=== PATIENT | female | born 1980 | race Caucasian/White ===

== ENCOUNTER 2019-07-19 15:57 | Outpatient (CLI) | payer OTHER, SELFPAY ==
[2019-07-19 16:38] VITALS: BP 114/61; PULSE 72
[2019-07-19 16:45] VITALS: BP 107/62; PULSE 76
[2019-07-19 17:15] VITALS: BP 103/61; PULSE 74
[2019-07-19 17:25] LABS: Basophils Percent Auto 0.3 % (0.2-1.2); Eosinophils Absolute Auto 0.1 K/mm3 (0-0.3); Hematocrit 35.4 % (37.0-47.0); Immature Granulocyte Absolute 0.06 K/mm3 (0.00-0.031); Immature Granulocyte Percent A 0.8 % (0-0.5); Lymphocytes Absolute Auto 1.61 K/mm3 (0.9-3.2); Lymphocytes Percent Auto 20.6 % (18.3-44.2); Mean Corpuscular HGB Conc 33.9 g/dl (32-36); Mean Corpuscular Hemoglobin 32.1 pg (26-34); Mean Corpuscular Volume 94.7 fl (80-100); Mean Platelet Volume 9.5 fl (7.4-10.4); Monocytes Absolute Auto 0.6 K/mm3 (0.1-0.6); Monocytes Percent Auto 7.3 % (2.6-8.5); Neutrophils Absolute Auto 5.5 K/mm3 (1.3-6.7); Nucleated Red Blood Cells Perc 0.3 % (0.0-0.2); Platelet Count Result 246 k/mm3 (150-375); Red Blood Count 3.74 M/mm3 (4.2-5.4); Red Cell Distribution Width 13.6 % (11.5-14.5); White Blood Count 7.8 K/mm3 (4.5-10.0)
[2019-07-19 17:31] LABS: Add Urine Microscopic? YES; Amorphous Sediment Urine Moderate; Appearance Urine Cloudy (Clear); Bacteria Urine Trace /hpf; Bilirubin Urine Negative (Negative); Blood Urine Negative (Negative); Color Urine Yellow (Yellow); Glucose Urine UA Negative (Negative); Ketones Urine Negative (Negative); Leukocyte Esterase Ur Negative LEU/UL (NEGATIVE); Mucus Urine Rare /lpf; Nitrate Urine Negative (Negative); Protein Urine Negative (Negative); RBC Urine 0-2 /hpf (0-2); Specific Grav Ur 1.014 (1.001-1.035); Squamous Epithelial Cell Urine Many /hpf (Few); Urobilinogen Urine Negative mg/dL (<2.0); WBC Urine 0-3 /hpf (0-3)
[2019-07-19 17:32] LABS: Creatinine Urine 67.9 mg/dL; Total Protein Urine Random 13 mg/dL
[2019-07-19 17:33] VITALS: BP 78/40; PULSE 102
[2019-07-19 17:35] LABS: Alanine Aminotransferase 17 U/L (4-35); Albumin Level 3.9 g/dL (3.5-5.1); Alkaline Phosphatase 69 U/L (38-126); Aspartate Amino Transferase 21 U/L (14-36); Bilirubin,Total 0.2 mg/dL (0.2-1.3); Blood Urea Nitrogen 6 mg/dL (7-17); Calcium 9.1 mg/dL (8.4-10.2); Carbon Dioxide 23 mmol/L (22-30); Chloride 104 mmol/L (98-107); Estimated Glomerular Filt Rate > 60; Glucose 80 mg/dL (65-105); Potassium 3.2 mmol/L (3.4-5.0); Sodium 133 mmol/L (137-145); Uric Acid 2.5 mg/dL (2.5-7.5)
[2019-07-19 17:42] VITALS: BP 103/61; PULSE 75
--- NOTE | 2019-07-19 17:56 | PC.NURSE ---
Called Dr Wallace with lab results and BPs. Reported patient has edema in lower extremities. NST was good and reactive. Dr wallace said patient can be discharged.
== END 2019-07-19 17:59 | disposition home or self-care (01) ==
LOC: ANHOBOP 16:07 → ANHOBPP 16:10
PROVIDERS: Obstetrics & Gynecology; Visit Provider Obstetrics & Gynecology Gynecology
DX: O13.9 Gestational [pregnancy-induced] hypertension without significant proteinuria, unspecified trimester (principal)
CPT/HCPCS: 36415; 59025; 80053; 81001; 82570; 84156; 84550; 85025; 87086; 99199

== ENCOUNTER 2019-08-01 10:11 | Outpatient (CLI) | payer OTHER, SELFPAY ==
[2019-08-01 10:50] LABS: Potassium 3.7 mmol/L (3.4-5.0); Sodium 134 mmol/L (137-145)
== END 2019-08-01 10:12 | disposition home or self-care (01) ==
PROVIDERS: Visit Provider Obstetrics & Gynecology Gynecology
DX: R79.9 Abnormal finding of blood chemistry, unspecified (principal)
CPT/HCPCS: 36415; 84132; 84295

== ENCOUNTER 2019-09-03 16:11 | Outpatient (RCR) | payer OTHER, SELFPAY ==
[2019-09-03 16:45] VITALS: BP 114/55; PULSE 85
[2019-09-03 16:50] VITALS: BP 114/55; PULSE 84
== END 2019-09-03 17:00 | disposition home or self-care (01) ==
LOC: ANHOBOP 16:11
PROVIDERS: Visit Provider Obstetrics & Gynecology
DX: O26.893 Other specified pregnancy related conditions, third trimester (principal); Z3A.00 Weeks of gestation of pregnancy not specified
CPT/HCPCS: 59025

== ENCOUNTER 2019-10-20 10:53 | Outpatient (CLI) | payer OTHER, SELFPAY ==
[2019-10-20 11:51] LABS: Hematocrit 34.3 % (37.0-47.0); Hemoglobin 11.7 g/dL (12.0-15.0); Mean Corpuscular HGB Conc 34.1 g/dl (32-36); Mean Corpuscular Volume 90.7 fl (80-100); Mean Platelet Volume 9.1 fl (7.4-10.4); Platelet Count Result 274 k/mm3 (150-375); Red Blood Count 3.78 M/mm3 (4.2-5.4)
[2019-10-22 11:33] LABS: Rapid Plasma Reagin Non-Reactive (NonReactive)
== END 2019-10-20 10:54 | disposition home or self-care (01) ==
PROVIDERS: Visit Provider Obstetrics & Gynecology Gynecology
DX: Z01.818 Encounter for other preprocedural examination (principal)
CPT/HCPCS: 36415; 85027; 86592; 86850; 86900; 86901

== ENCOUNTER 2019-10-22 05:30 | Inpatient (IN) | payer OTHER, SELFPAY ==
--- NOTE | 2019-10-06 15:19 | PC.NURSE ---
VERIFIED WITH OR SCHEDULE AND PATIENT --C/S WITH TUBAL LIGATION ON 10/22/19 AT 0730 PATIENT GIVEN REQUISITION FOR LAB DRAW ON 10/20/19
--- NOTE | 2019-10-21 13:17 | WPDANESEPP ---
Anes - Eval Pre Procedure Procedure: Operation Date: 10/22/19 07:30 Proposed Procedures p Repeat Section with Bilateral Tubal Ligation With Fallopian Rings - Samantha Hernandez MD Date/Time: 10/21/19 13:17 Pre Op Diagnosis: C/Section Patient Data Age: 39 Gender: F Height: Weight: Allergies Allergy/AdvReac Type Severity Reaction Status Date / Time No Known Allergies Allergy Verified 10/06/19 14:50 Home Medications Medication Instructions Recorded Confirmed Type [id number] fumarate-FA 1 tablet PO DAILY 07/19/19 07/19/19 History [] insulin NPH isoph U-100 human 14 unit SUBCUT QAM 10/06/19 10/06/19 History [Humulin N NPH U-100 Insulin] insulin NPH isoph U-100 human 67 unit SUBCUT HS 10/06/19 10/06/19 History [Humulin N NPH U-100 Insulin] ondansetron HCl 4 mg PO Q6H 10/06/19 10/06/19 History valacyclovir [Valtrex] 500 mg PO DAILY 10/06/19 10/06/19 History Patient hx anesthesia problems: none Family hx anesthesia problems: none PMFSH Past Medical History Medical History (Updated 10/21/19 @ 13:18 by Yolande De Anda CRNA) Gestational diabetes HSV (herpes simplex virus) infection Surgical History Surgical History (Updated 10/21/19 @ 13:18 by Yolande De Anda CRNA) H/O section Family History Family History (Updated 10/06/19 @ 14:59 by Domingo Landers RN) Father Skin cancer Social History Social History Alcohol intake: never Substance use: never Substance use type: opiates Spiritual care concerns: No Exam Day of Procedure 10/21/19 13:17
[2019-10-22] VITALS (70 sets, daily range): BP systolic 52–124; BP diastolic 23–79; PULSE 70–194; RESP 11–20; TEMP 35.7–37.3; O2SAT 91–100; BMI 35.9
[2019-10-22 06:04] LABS: Glucose Point of Care 80 (65-105)
[2019-10-22] MEDS: LACTATED RINGERS 1,000 ML 125 ML IV CONT ×2 (06:26→07:23)
--- NOTE | 2019-10-22 06:54 | WPDANESEPPF ---
Anes - Initial Pre Proc Eval Procedure: Operation Date: 10/22/19 07:30 Proposed Procedures p Repeat Section with Bilateral Tubal Ligation With Fallopian Rings - Samantha Hernandez MD Date/Time: 10/22/19 06:54 Surgeon: Samantha Hernandez MD Pre Op Diagnosis: Repeat C/S Patient Data Age: 39 Gender: F Height: Weight: Last Vital Signs Pulse 86 10/22/19 05:58 BP 124/62 10/22/19 05:58 Pulse Ox 100 10/22/19 05:58 Allergies Allergy/AdvReac Type Severity Reaction Status Date / Time No Known Allergies Allergy Verified 10/06/19 14:50 Home Medications Medication Instructions Recorded Confirmed Type [id number] fumarate-FA 1 tablet PO DAILY 07/19/19 07/19/19 History [] insulin NPH isoph U-100 human 14 unit SUBCUT QAM 10/06/19 10/06/19 History [Humulin N NPH U-100 Insulin] insulin NPH isoph U-100 human 67 unit SUBCUT HS 10/06/19 10/06/19 History [Humulin N NPH U-100 Insulin] ondansetron HCl 4 mg PO Q6H 10/06/19 10/06/19 History valacyclovir [Valtrex] 500 mg PO DAILY 10/06/19 10/06/19 History Laboratory Tests 10/22/19 06:00 POC Capillary Glucose 80 mg/dl mg/dl (65-105) Patient hx anesthesia problems: none Family hx anesthesia problems: none PMFSH Past Medical History Medical History Gestational diabetes HSV (herpes simplex virus) infection Surgical History Surgical History H/O section Family History Family History Father Skin cancer Social History Social History Alcohol intake: never Substance use: never Substance use type: opiates Spiritual care concerns: No Anes - Eval Final PreProcedure Day of Procedure 10/22/19 06:54 Patient weight: obese Heart: regular rate and rhythm Lungs: clear to auscultation Airway: Mallampati scale class II Neurological: alert and oriented Last oral intake: >/= 8 hours ASA classification: III Emergent: no Anesthetic plan: proceed Anesthesia type and monitoring: regional spinal and standard monitoring Informed Consent: The patient's anesthetic plan and its attendant risks and benefits were discussed with the patient/family/POA. Questions were solicited and answers provided to the satisfaction of the patient/family/POA.
[2019-10-22] MEDS: ceFAZolin 2 GM/D5W 50 ML 2 GM/50 ML BAG IVPB (07:24)
--- NOTE | 2019-10-22 07:26 | PM.IMHP ---
H&P: HPI History of Present Illness Date/Time: 10/22/19 07:26 Chief complaint: Repeat C/S Narrative: Emelyn Aranda is a 39 year old female at 39 wks here for repeat csection and BTL. Patient complicated by GDMA2. Due to AMA, patient had level 2 u/s that was normal. She declined genetic testing. laps B+; Rubella nonimmune; RPR -; HBSAg -; HIV -; GBS -. [facility] Past Medical History Medical History (Updated 10/22/19 @ 07:30 by Samantha Hernandez MD) Gestational diabetes HSV (herpes simplex virus) infection (normal spontaneous vaginal delivery) Surgical History Surgical History (Updated 10/22/19 @ 07:30 by Samantha Hernandez MD) H/O section Family History Family History Father Skin cancer Social History Social History (Updated 10/22/19 @ 07:29 by Samantha Hernandez MD) Smoking status: Current every day smoker Tobacco type: cigarettes Second hand tobacco smoke exposure: Yes Alcohol intake: never Substance use: former Substance use type: heroin, 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 Spiritual care concerns: No Meds Home Medications and Allergies Home Medications Medication Instructions Recorded Confirmed Type [id number] fumarate-FA 1 tablet PO DAILY 07/19/19 10/22/19 History [] insulin NPH isoph U-100 human 14 unit SUBCUT QAM 10/06/19 10/06/19 History [Humulin N NPH U-100 Insulin] insulin NPH isoph U-100 human 67 unit SUBCUT HS 10/06/19 10/06/19 History [Humulin N NPH U-100 Insulin] ondansetron HCl 4 mg PO Q6H 10/06/19 10/06/19 History valacyclovir [Valtrex] 500 mg PO DAILY 10/06/19 10/06/19 History Allergies Allergy/AdvReac Type Severity Reaction Status Date / Time No Known Allergies Allergy Verified 10/06/19 14:50 Vital Signs Vital Signs - 24 hr 10/22/19 05:58 Pulse Rate 86 Blood Pressure 124/62 Pulse Oximetry 100 Exam Const: General: healthy appearing and alert Orientation/consciousness: patient oriented x3 Resp: Effort & Inspection: normal respiratory effort Auscultation: clear to auscultation bilaterally Cardio: Rate: regular rate Rhythm: regular rhythm GI: GI Palp: Yes Soft to palpation, No Tenderness to palpation present (GI) and No Palpable mass present Other: gravid with FH 42 cm : External Female Exam: normal external appearance Speculum Exam - Vagina: normal appearance of the vagina and normal vaginal discharge Speculum Exam - Cervix: normal appearance of the cervix Bimanual exam- vagina & uterus: uterine size normal and consistency normal Bimanual Exam- Adnexa, other: normal adnexae and No adnexal tenderness Neuro: General: patient oriented x3 Assessment and Plan Assessment and plan (1) H/O section: Code(s): Z98.891 - History of uterine scar from previous surgery Status: Acute Assessment and Plan: Plan to proceed with repeat csection as patient declined trial of labor (2) 39 weeks gestation of : Code(s): Z3A.39 - 39 weeks gestation of Status: Acute (3) Encounter for sterilization: Code(s): Z30.2 - Encounter for sterilization Status: Acute Assessment and Plan: Plan to proceed with BTL. Risks of failure with increased ectopic if fails was reviewed. Patient is aware this is a permanent, sterilizing procedure
[2019-10-22] MEDS: FAMOTIDINE 20 MG/2 ML VIAL IV PUSH (08:38)
[2019-10-22] MEDS: DEXAMETHASONE SOD PHOS INJ 4 MG/ML VIAL IV PUSH (08:38)
--- NOTE | 2019-10-22 09:06 | PM.PROC ---
Procedure Note - Detailed Date of procedure: 10/22/19 Pre-op diagnosis: Repeat C/S requests sterilization Post-op diagnosis: same Description of procedure: The patient is taken to the operating room, placed under spinal anesthesia, and prepped and draped in the usual sterile fashion. Once anesthesia is deemed adequate a Pfannenstiel skin incision is made with a scalpel and carried down to the fascia. Fascia is nicked in the midline and extended laterally using Cohen scissors. The peritoneum was entered during this process. The rectus muscles are off the fascia using sharp and blunt dissection while tenting. The Ambrosio-O retractor placed and the lower uterine segment is incised in a transverse fashion with the scalpel. The amniotic cavity is entered and clear fluid is noted. The incision is extended with blunt traction. The infant's head is assisted with the planning assistant applying fundal pressure and the infant was slowly delivered the cord is clamped and cut and the infant handed to the waiting nurse. The placenta was removed using manual traction and manual removal due to cord avulsion . The uterus was cleared of all clots and debris. The uterine incision is closed using 0 Monocryl in a running locked fashion with a 2nd layer to imbricate. Good hemostasis is noted. The right tube is grasped with a Rosa crossclamped and excised leaving approximately 2cm at the cornua the pedicle was tied off using 0 Vicryl. The identical procedure was performed on the left side. Good hemostasis was noted at both pedicles and the uterine incision. The cul-de-sac and gutters are irrigated. The Ambrosio retractor was removed. The fascia was closed using 0 Vicryl in a running fashion. Subcutaneous tissues are irrigated and made hemostatic using Bovie cautery. Skin incision is closed using 4 0 Vicryl in a subcuticular fashion. Dermaflex was placed over the incision. Sponge instrument needle counts are correct per the OR staff Anesthesia: spinal Surgeon: Samantha Hernandez MD Estimated blood loss (mL): 690 Drains: Yes (armendariz) Packing: No Pathology: yes (tubes) Complications: No immediate complications Condition: stable Disposition: PACU Findings: normal appearing tubes, ovaries, and uterus; Female with 8/9 Apgars weighing 7#9oz
[2019-10-22] MEDS: KETOROLAC 30 MG/ML VIAL (*BKC) IV PUSH (09:16)
[2019-10-22] MEDS: OXYTOCIN 30 UNITS/NS 500 ML 30 UNITS/500 ML BAG 125 UNITS IV CONT (10:20)
--- NOTE | 2019-10-22 10:20 | SUR.PHASEI ---
1020 PT sitting up and complains of dizziness. pt appears pale and clammy. lay her back on spine position, abdomen distended. fundus is firm and moderate amount of rubra noted. no clots expressed with fundal massage. IV fluid rate increased. called for help asked to call Dr. Hernandez for evaluation. 1030 Dr. Lozoya at bedside. called Dr. Hernandez was called and she was in OR case. attempting call Dr. Wallace. 1034 second IV access obtained. LR infusing wide open. pt remains conscious. 1040 attempting for lab draw. 1055 Dr. Wallace at bedside. report given for distended abdomen with decreased blood pressure. Dr. Wallace explained pt and possible internal bleeding and need exploratory laparotomy. pt agreed for plan of care. 1105 transferred pt to OR room 6. consent was signed.
--- NOTE | 2019-10-22 11:05 | SUR.PHASEI ---
1105 Transferred pt to OR via stretcher for exploratory laparotomy.
[2019-10-22 11:06] LABS: Basophils Absolute Auto 0.1 K/mm3 (0.0-0.1); Basophils Percent Auto 0.4 % (0.2-1.2); Eosinophils Percent Auto 0.2 % (0-4.4); Hemoglobin 9.3 g/dL (12.0-15.0); Immature Granulocyte Absolute 0.16 K/mm3 (0.00-0.031); Immature Granulocyte Percent A 0.9 % (0-0.5); Lymphocytes Absolute Auto 1.43 K/mm3 (0.9-3.2); Lymphocytes Percent Auto 8.4 % (18.3-44.2); Mean Corpuscular HGB Conc 33.2 g/dl (32-36); Mean Corpuscular Hemoglobin 31.3 pg (26-34); Mean Corpuscular Volume 94.3 fl (80-100); Mean Platelet Volume 9.4 fl (7.4-10.4); Monocytes Absolute Auto 0.5 K/mm3 (0.1-0.6); Monocytes Percent Auto 2.6 % (2.6-8.5); Neutrophils Absolute Auto 14.9 K/mm3 (1.3-6.7); Neutrophils Percent Auto 87.5 % (45.5-73.1); Platelet Count Result 280 k/mm3 (150-375); Red Blood Count 2.97 M/mm3 (4.2-5.4); Red Cell Distribution Width 13.3 % (11.5-14.5); White Blood Count 17.1 K/mm3 (4.5-10.0)
[2019-10-22 11:17] LABS: Partial Thromboplastin Time 23.9 SECONDS (22.3-36.8)
[2019-10-22 11:20] LABS: D Dimer 2.63 ug/mL (<0.48)
[2019-10-22] MEDS: ceFAZolin SODIUM 1 GM VIAL 2 GM IV PUSH (11:21)
[2019-10-22] MEDS: METHYLERGONOVINE MALEATE 0.2 MG/ML VIAL IM (11:33)
[2019-10-22 11:39] LABS: Fibrinogen 309 mg/dl (215-510)
--- NOTE | 2019-10-22 11:55 | PM.OBDSVD ---
DS: Admitting Diagnosis Admitting Diagnosis Admitting Diagnosis: Repeat C/S and BTL GDMA2 DS: Discharge Diagnosis Discharge Diagnosis (1) Post-op bleeding: Status: Acute Assessment and Plan: Return to OR by Dr. Wallace. Tubal sites bleeding and 1.5 liters blood in abdomen 3 units PRBC post op (2) delivery delivered: Code(s): O82 - Encounter for delivery without indication Status: Acute (3) Encounter for sterilization: Code(s): Z30.2 - Encounter for sterilization Status: Acute Assessment and Plan: s/p BTL OB - DS: Summary OB Procedures : NST and Ultrasound OB Procedures Intrapartum: low cervical, transverse and Tubal ligation OB Procedures: : Other (exploratory laparotomy with control of bleeding per Dr. Wallace) Peripartum Data Infant Delivery Method: Section Procedures: Procedures Operation Date: 10/22/19 07:30 Actual Procedures Side Surgeon p Repeat Section with Bilateral Tubal Ligation With Fallopian Rings Bilateral Samantha Hernandez MD Operation Date: 10/22/19 11:00 Actual Procedures Side Surgeon p EXPLORATORY LAPAROTOMY Not Applicable Nikhil Wallace MD complications: other (hemorrhage) Status at Discharge Functional status at discharge: independent ambulation Overall status at discharge: patient is not back to baseline Time Spent with Patient Time attestation: Total time spent providing and/or coordinating discharge services: DS: Data Data Completed and Pending Pending studies at discharge: Pending at discharge 10/22/19 08:57 Surgical [PTH] Routine Labs on day of discharge: Labs from last 24 hours 10/22/19 10/22/19 10/22/19 10:55 10:55 06:00 WBC 17.1 H RBC 2.97 L Hgb 9.3 L Hct 28.0 L MCV 94.3 MCH 31.3 MCHC 33.2 RDW 13.3 Plt Count 280 MPV 9.4 Immature Gran % (Auto) 0.9 H Neut % (Auto) 87.5 H Lymph % (Auto) 8.[address] [place] % (Auto) 2.6 Eos % (Auto) 0.2 Baso % (Auto) 0.4 Lymph # (Auto) 1.43 [place] # (Auto) 0.5 Eos # (Auto) 0.0 Baso # (Auto) 0.1 Abs Immat Gran (auto) 0.16 H Absolute Neuts (auto) 14.9 H Absolute Nucleated RBC 0.0 Nucleated RBC % 0.0 PT 13.0 INR 1.0 APTT 23.9 Fibrinogen 309 D-Dimer 2.63 H POC Capillary Glucose 80 Crossmatch 10/20/19 11:26 WBC RBC Hgb Hct MCV MCH MCHC RDW Plt Count MPV Immature Gran % (Auto) Neut % (Auto) Lymph % (Auto) [place] % (Auto) Eos % (Auto) Baso % (Auto) Lymph # (Auto) [place] # (Auto) Eos # (Auto) Baso # (Auto) Abs Immat Gran (auto) Absolute Neuts (auto) Absolute Nucleated RBC Nucleated RBC % PT INR APTT Fibrinogen D-Dimer POC Capillary Glucose Crossmatch See Detail Discharge Plan Discharge Attending physician on discharge: Samantha Hernandez Consulting providers: Nikhil Wallace Discharging Clinician: Samantha Hernandez Anticipated Discharge Date/Time: 10/25/19 11:59 Patient Disposition: Home, Self-Care Activity: may shower, may drive after 2 weeks and pelvic rest Diet: regular Wound Care Instructions: incision open to air Discharge Instructions: Education: Mom and Baby Guide Given to: Mother Follow-Up: Call your delivering provider's office for an appointment to be seen. Mom and baby should come to the [facility] for the follow-up appointment. Appointment Date/Time: October 26, 2019 at 10:00 am What to expect at your follow-up visit: Physical Assessment Call [phone] if you are unable to keep your appointment time. BREAST CARE: * Wear a snug supportive bra. * For engorgement discomfort: Bottle Feeding: * May apply ice packs ABDOMINAL INCISION: * Allow incision to air dry * Do NOT use lotions for powders on your incision * When showering, allow soap and water to run over the incision, but do not wa
--- NOTE | 2019-10-22 12:04 | PM.OP ---
Procedure Note - Brief Procedure Note - Brief Date of procedure: 10/22/19 Pre-op diagnosis: hemoperitoneum Post-op diagnosis: same Procedure performed: diagnostic exploratory laparotomy Anesthesia: GETA Surgeon: Nikhil Wallace MD Estimated blood loss (mL): 2,500 Drains: No Packing: No Pathology: none sent Complications: None Disposition: PACU Findings: large hemoperitoneum with bilateral bleeding at tubal ligation sites.
[2019-10-22] MEDS: LACTATED RINGERS 1,000 ML 30 ML IV CONT ×3 (12:11→13:23)
--- NOTE | 2019-10-22 12:56 | SUR.PHASEI ---
1222 - [place] OB RN at bedside assessing patient. performing fundal massage 1230 - Dr. Lozoya at bedside
[2019-10-22 13:00] LABS: Hematocrit 22.9 % (37.0-47.0); Hemoglobin 7.6 g/dL (12.0-15.0)
--- NOTE | 2019-10-22 13:06 | SUR.PHASEI ---
1306 - DR. MOJICA AWARE OF H&H. . NO ORDERS RECEIVED. DR MOJICA STATED THAT HE WOULD TELL DR. ROY
--- NOTE | 2019-10-22 13:07 | SUR.PHASEI ---
1305 - SOLANGE OBAMPARO AT BEDSIDE ASSESSING PT.
--- NOTE | 2019-10-22 13:15 | SUR.PHASEI ---
1315 - DR. MOJICA AT BEDSIDE. STATED THAT DR. ROY DID NOT WANT TO ADMINISTER BLOOD AT THIS TIME.
--- NOTE | 2019-10-22 14:08 | PM.PROC ---
Procedure Note - Detailed Date of procedure: 10/22/19 Pre-op diagnosis: hemoperitoneum Post-op diagnosis: same Procedure performed: diagnostic laparoscopy with evacuation of hemoperitoneum Description of procedure: Called to bedside secondary to hemodynamically unstable. Patient was taken to operating with IV running prepared and draped in a normal sterile fashion placed in supine position. A Pfannenstiel incision from prior surgery was opened with scalpel and the fascia was opened and a large amount of blood was noted in the abdomen the blood was cleared and irrigated from the abdomen. The uterus was exteriorized and noted bilateral bleeding from the tubal ligation sites. the area was clamped with Herrera clamps and suture ligated with 0 Vicryl suture bilaterally ligating the uterine tubal arteries. The uterus was noted to be boggy and the patient received Methergine x1 and IV Pitocin. The uterus began to firm and was returned to the abdomen the gutters were irrigated cleared of all clots and debris. The uterine incision was noted to be hemostatic. The muscles were examined for hemostasis the fascia was closed with 0 Vicryl suture. The subcutaneous tissue was irrigated and and closed with plain gut. The skin was closed with 4 Vicryl suture. The patient did receive an additional 2 g of Ancef after skin was closed. Sponge lap and needle counts were correct x2 patient was taken to recovery room. Anesthesia: GETA Surgeon: Nikhil Wallace MD Estimated blood loss (mL): 2,500 Drains: Yes Packing: No Pathology: none sent Condition: stable Disposition: PACU
[2019-10-22] MEDS: DEXTROSE 5%/0.45% SOD CHL 1,000 ML 125 ML IV CONT (14:30)
[2019-10-22] MEDS: ONDANSETRON INJ 4 MG/2 ML VIAL IV PUSH (20:46)
[2019-10-22] MEDS: KCL 20 MEQ/D5/0.45% SOD CHL 1,000 ML 125 ML IV CONT (22:30)
[2019-10-23] VITALS (25 sets, daily range): BP systolic 101–125; BP diastolic 53–72; PULSE 98–119; RESP 16–20; TEMP 36.7–38.2; O2SAT 90–100
[2019-10-23] MEDS: ONDANSETRON INJ 4 MG/2 ML VIAL IV PUSH ×4 (02:02→17:12)
[2019-10-23 05:37] LABS: Basophils Percent Auto 0.1 % (0.2-1.2); Eosinophils Percent Auto 0.1 % (0-4.4); Immature Granulocyte Absolute 0.19 K/mm3 (0.00-0.031); Immature Granulocyte Percent A 1.2 % (0-0.5); Lymphocytes Absolute Auto 1.54 K/mm3 (0.9-3.2); Mean Corpuscular HGB Conc 32.9 g/dl (32-36); Mean Corpuscular Hemoglobin 30.4 pg (26-34); Mean Corpuscular Volume 92.3 fl (80-100); Mean Platelet Volume 9.2 fl (7.4-10.4); Monocytes Absolute Auto 0.8 K/mm3 (0.1-0.6); Monocytes Percent Auto 5.3 % (2.6-8.5); Neutrophils Absolute Auto 12.8 K/mm3 (1.3-6.7); Neutrophils Percent Auto 83.3 % (45.5-73.1); Platelet Count Result 238 k/mm3 (150-375); Red Blood Count 1.68 M/mm3 (4.2-5.4); Red Cell Distribution Width 13.3 % (11.5-14.5); White Blood Count 15.3 K/mm3 (4.5-10.0)
[2019-10-23 05:43] LABS: Hematocrit 15.5 % (37.0-47.0); Hemoglobin 5.1 g/dL (12.0-15.0)
--- NOTE | 2019-10-23 06:00 | PC.NURSE ---
Dr Hernandez was notified of critical H/H of 5.1 at 0600 on 10/23/19. No new orders at this time...Stated I will see patient this morning before office hours to speak to patient about possible blood transfusion.
--- NOTE | 2019-10-23 06:40 | PC.NURSE ---
Total fentanyl intake from STORE RECEIVER pump from 1942 on 10/21 till 614 on 10/22: 138 mcg.. Patient is drowsy by easily awakened.
[2019-10-23] MEDS: DEXTROSE 5%/0.45% SOD CHL 1,000 ML 125 ML IV CONT (06:48)
--- NOTE | 2019-10-23 08:01 | P.PNAN_ITS ---
Anes-Prog Note L&D Date/Time: 10/23/19 08:01 Comfortable throughout: section Neuraxial method: spinal Epidural/Spinal procedure site: clean & non-tender Neuro status: Neuro function grossly intact. Cardiovascular status: other (Following , patient underwent exploratory laparotomy by Dr. Hernandez. Hb 5.1 this A.M. Per pt. RN, patient to be transfused 3 units PRBCs this A.M.) Respiratory status: normal Airway patency: baseline Mental status: baseline Post-Op hydration status: normal Vital Signs: Last Vital Signs Temp 37.0 C 10/23/19 04:15 Pulse 108 H 10/23/19 04:15 Resp 16 10/23/19 06:00 BP 116/65 10/23/19 04:15 Pulse Ox 90 10/23/19 04:15 I/O: Intake & Output 10/22/19 10/23/19 10/23/19 23:59 07:59 15:59 Intake Total 2390 700 Output Total 200 1500 Balance 2190 -800 Post-procedural complaints: nausea, vomiting and other (incisional pain. Patient being transitioned from APPLIED MATHEMATICIAN to PO pain medications per patient RN) Patient feedback: Patient satisfied with anesthetic care.
--- NOTE | 2019-10-23 08:06 | WPDANLDNPN2 ---
Anes-Prog Note L&D-Neuraxial Date/Time: 10/23/19 08:06 Neuraxial medications: intrathecal PF morphine Opiod-related complaints: vomiting Patient feedback: Patient satisfied with post-operative pain management. Comments: pt. to be transitioned from REGISTRAR ASSISTANT to PO pain medications per pt. RN.
--- NOTE | 2019-10-23 08:07 | P.PNAN_ITS ---
Anes - Prog Note Post-Op Date/Time: 10/23/19 08:07 Cardiovascular status: other (Following , patient underwent exploratory laparotomy by Dr. Hernandez. Hb 5.1 this A.M. Per pt. RN, patient to be transfused 3 units PRBCs this A.M.) Respiratory status: normal Airway patency: baseline Mental status: baseline Post-Op hydration status: normal Vital Signs: Last Vital Signs Temp 37.0 C 10/23/19 04:15 Pulse 108 H 10/23/19 04:15 Resp 16 10/23/19 06:00 BP 116/65 10/23/19 04:15 Pulse Ox 90 10/23/19 04:15 I/O: Intake & Output 10/22/19 10/23/19 10/23/19 23:59 07:59 15:59 Intake Total 2390 700 Output Total 200 1500 Balance 2190 -800 Laboratory Tests 10/23/19 05:07 10/20/19 10/22/19 10/22/19 11:26 10:55 10:55 WBC 17.1 H RBC 2.97 L Hgb 9.3 L Hct 28.0 L MCV 94.3 MCH 31.3 MCHC 33.2 RDW 13.3 Plt Count 280 MPV 9.4 Immature Gran % (Auto) 0.9 H Neut % (Auto) 87.5 H Lymph % (Auto) 8.4 L [place] % (Auto) 2.6 Eos % (Auto) 0.2 Baso % (Auto) 0.4 Lymph # (Auto) 1.43 [place] # (Auto) 0.5 Eos # (Auto) 0.0 Baso # (Auto) 0.1 Abs Immat Gran (auto) 0.16 H Absolute Neuts (auto) 14.9 H Absolute Nucleated RBC 0.0 Nucleated RBC % 0.0 PT 13.0 INR 1.0 APTT 23.9 Fibrinogen 309 D-Dimer 2.63 H Crossmatch See Detail 10/22/19 10/23/19 12:48 05:07 WBC 15.3 H RBC 1.68 L Hgb 7.6 L 5.1 L* Hct 22.9 L 15.5 L* MCV 92.3 MCH 30.4 MCHC 32.9 RDW 13.3 Plt Count 238 MPV 9.2 Immature Gran % (Auto) 1.2 H Neut % (Auto) 83.3 H Lymph % (Auto) 10.0 L [place] % (Auto) 5.3 Eos % (Auto) 0.1 Baso % (Auto) 0.1 L Lymph # (Auto) 1.54 [place] # (Auto) 0.8 H Eos # (Auto) 0.0 Baso # (Auto) 0.0 Abs Immat Gran (auto) 0.19 H Absolute Neuts (auto) 12.8 H Absolute Nucleated RBC 0.0 Nucleated RBC % 0.0 PT INR APTT Fibrinogen D-Dimer Crossmatch Post-procedural complaints: nausea, vomiting and other (incisional pain. Patient being transitioned from EVENTS AND PROMOTIONS ASSISTANT to PO pain medications per patient RN) Patient Feedback: Patient satisfied with anesthetic care.
--- NOTE | 2019-10-23 08:14 | P.PNOB_ITS ---
OB - PN: Subj Subjective Date/time seen: 10/23/19 08:14 Interval history: rough night nausea and vomiting persist pain ok with LICENSED PROSTHETIST/ORTHOTIST but scared to hit due to nausea baby status: doing well OB - PN: Obj Data Labs CBC & Chem 7: 10/23/19 05:07 Labs: Laboratory Results - last 24 hr 10/20/19 10/22/19 10/22/19 11:26 10:55 10:55 WBC 17.1 H RBC 2.97 L Hgb 9.3 L Hct 28.0 L MCV 94.3 MCH 31.3 MCHC 33.2 RDW 13.3 Plt Count 280 MPV 9.4 Immature Gran % (Auto) 0.9 H Neut % (Auto) 87.5 H Lymph % (Auto) 8.4 L [place] % (Auto) 2.6 Eos % (Auto) 0.2 Baso % (Auto) 0.4 Lymph # (Auto) 1.43 [place] # (Auto) 0.5 Eos # (Auto) 0.0 Baso # (Auto) 0.1 Abs Immat Gran (auto) 0.16 H Absolute Neuts (auto) 14.9 H Absolute Nucleated RBC 0.0 Nucleated RBC % 0.0 PT 13.0 INR 1.0 APTT 23.9 Fibrinogen 309 D-Dimer 2.63 H Crossmatch See Detail 10/22/19 10/23/19 12:48 05:07 WBC 15.3 H RBC 1.68 L Hgb 7.6 L 5.1 L* Hct 22.9 L 15.5 L* MCV 92.3 MCH 30.4 MCHC 32.9 RDW 13.3 Plt Count 238 MPV 9.2 Immature Gran % (Auto) 1.2 H Neut % (Auto) 83.3 H Lymph % (Auto) 10.0 L [place] % (Auto) 5.3 Eos % (Auto) 0.1 Baso % (Auto) 0.1 L Lymph # (Auto) 1.54 [place] # (Auto) 0.8 H Eos # (Auto) 0.0 Baso # (Auto) 0.0 Abs Immat Gran (auto) 0.19 H Absolute Neuts (auto) 12.8 H Absolute Nucleated RBC 0.0 Nucleated RBC % 0.0 PT INR APTT Fibrinogen D-Dimer Crossmatch OB - PN A/P Assessment and Plan (1) delivery delivered: Code(s): O82 - Encounter for delivery without indication Status: Acute Assessment and Plan: Will give 3 units PRBC with 10 mg lasix iv between units mylicon and dulcolax and up to chair and bedside commode to stimulate bowels ambulate this afternoon as tolerated incentive spirometer toradol for pain to decrease narcotic use (2) Post-op bleeding: Status: Acute Assessment and Plan: reviewed again with spouse and patient events of yesterday and current status recommend blood transfusion with low Hb and not having good strength even though vs stable Time Spent With Patient Time: Total time spent is greater than 50% in coordination of care (as documented) at patient's floor/unit and/or counseling patient: Time with patient: 15 - 25 minutes Exam GI: Inspection: distended GI Palp: Yes abdominal tenderness and Yes Soft to palpation Percussion: Yes tympanic to percussion Auscultation: absent bowel sounds Other: inc c/d/i
[2019-10-23] MEDS: KETOROLAC 30 MG/ML VIAL (*BKC) (08:37)
[2019-10-23] MEDS: FUROSEMIDE INJ 40 MG/4 ML VIAL 10 MG IV PUSH ×3 (11:45→19:07)
[2019-10-23] MEDS: SODIUM CHLORIDE 0.9% IV 250 ML 30 ML IV CONT (11:45)
[2019-10-23] MEDS: SIMETHICONE 80 MG TAB.CHEW PO (13:32)
[2019-10-23] MEDS: KETOROLAC 30 MG/ML VIAL (*BKC) IV PUSH (15:37)
[2019-10-23] MEDS: SODIUM CHLORIDE 0.9% IV 100 ML 25 ML (16:10)
[2019-10-24] MEDS: SIMETHICONE 80 MG TAB.CHEW PO ×7 (02:37→22:49)
[2019-10-24] MEDS: IBUPROFEN 600 MG TABLET PO ×4 (02:37→22:49)
[2019-10-24 05:49] LABS: Hematocrit 23.9 % (37.0-47.0); Hemoglobin 8.1 g/dL (12.0-15.0); Mean Corpuscular HGB Conc 33.9 g/dl (32-36); Mean Corpuscular Hemoglobin 29.8 pg (26-34); Mean Corpuscular Volume 87.9 fl (80-100); Mean Platelet Volume 9.1 fl (7.4-10.4); Platelet Count Result 239 k/mm3 (150-375); Red Blood Count 2.72 M/mm3 (4.2-5.4); Red Cell Distribution Width 15.7 % (11.5-14.5); White Blood Count 12.2 K/mm3 (4.5-10.0)
--- NOTE | 2019-10-24 07:22 | WPDANLDPN2 ---
Anes-Prog Note L&D Date/Time: 10/24/19 07:22 Comfortable throughout: section Neuraxial method: spinal Epidural/Spinal procedure site: clean & non-tender Neuro status: Neuro function grossly intact. Cardiovascular status: normal (recieved PRBC's on 10/22, hgb 8.1 after PRBC. ) Respiratory status: normal Airway patency: baseline Mental status: baseline Post-Op hydration status: normal Vital Signs: Last Vital Signs Temp 37.7 C H 10/23/19 20:00 Pulse 100 10/23/19 20:00 Resp 18 10/23/19 20:00 BP 124/70 10/23/19 20:00 Pulse Ox 95 10/23/19 20:00 I/O: Intake & Output 10/23/19 10/23/19 10/24/19 15:59 23:59 07:59 Intake Total 1000 350 Output Total 1600 Balance -600 350 Post-procedural complaints: none (n/v and pain has improved. ) Patient feedback: Patient satisfied with anesthetic care.
--- NOTE | 2019-10-24 07:25 | WPDANLDNPN2 ---
Anes-Prog Note L&D-Neuraxial Date/Time: 10/24/19 07:25 Neuraxial medications: intrathecal PF morphine Opiod-related complaints: none Patient feedback: Patient satisfied with post-operative pain management.
[2019-10-24 08:15] VITALS: BP 111/60; PULSE 84; RESP 18; TEMP 36.6; O2SAT 99
[2019-10-24] MEDS: DOCUSATE SODIUM 100 MG CAPSULE PO ×2 (08:26→16:09)
[2019-10-24] MEDS: POLYSACCHARIDE IRON COMPLEX 150 MG CAPSULE PO ×2 (08:26→16:09)
[2019-10-24] MEDS: MULTIVIT/MIN/PREN/FOL AC/IRON TABLET 1 TAB PO (08:26)
[2019-10-24 19:46] VITALS: BP 122/58; PULSE 84; PULSE 86; RESP 18; TEMP 36.3; O2SAT 99
[2019-10-25] MEDS: SIMETHICONE 80 MG TAB.CHEW PO ×3 (02:00→08:47)
[2019-10-25] MEDS: IBUPROFEN 600 MG TABLET PO ×2 (05:04→11:32)
--- NOTE | 2019-10-25 07:54 | PM.OBPNVD ---
OB - PN: Subj Subjective Date/time seen: 10/25/19 07:54 Interval history: Feeling better today Patient comments: pain well controlled, incisional pain and tolerating diet baby status: bottle feeding well OB - PN: Obj Data Labs CBC & Chem 7: 10/24/19 05:37 OB - PN A/P Plan day: 3 Plan: routine care and discharge home Comments: Doing much better. Will DC home today Time Spent With Patient Time: Total time spent is greater than 50% in coordination of care (as documented) at patient's floor/unit and/or counseling patient: Exam GI: GI Palp: Yes Soft to palpation Percussion: Yes normal to percussion Other: Incision c/d/i : Bimanual exam- vagina & uterus: other (Uterus firm, nt @U)
[2019-10-25 08:45] VITALS: BP 118/69; PULSE 89; RESP 16; TEMP 36.4; O2SAT 94
[2019-10-25] MEDS: MULTIVIT/MIN/PREN/FOL AC/IRON TABLET 1 TAB PO (08:46)
[2019-10-25] MEDS: DOCUSATE SODIUM 100 MG CAPSULE PO (08:46)
[2019-10-25] MEDS: POLYSACCHARIDE IRON COMPLEX 150 MG CAPSULE PO (08:46)
[2019-10-26 07:55] VITALS: BP 135/71; PULSE 81; RESP 16; TEMP 36.9; O2SAT 100
== END 2019-10-25 12:48 | disposition home or self-care (01) | DRG 540 ==
LOC: ANHLDR 12:04 → ANHOB2 14:26
PROVIDERS: Anesthesiology; Obstetrics & Gynecology; Admitting Provider Obstetrics & Gynecology Gynecology; Visit Provider Obstetrics & Gynecology Gynecology
PROC: 10D00Z1 Extraction of Products of Conception, Low, Open Approach (ICD-10-PCS; CPT 59514; principal; 2019-10-22 07:30)
PROC: 0UT94ZZ Resection of Uterus, Percutaneous Endoscopic Approach (ICD-10-PCS; principal; 2019-10-22 11:00)
DX: O34.211 Maternal care for low transverse scar from previous cesarean delivery (principal); Z37.0 Single live birth; Z3A.39 39 weeks gestation of pregnancy; O24.429 Gestational diabetes mellitus in childbirth, unspecified control; O98.52 Other viral diseases complicating childbirth; B00.9 Herpesviral infection, unspecified; O99.214 Obesity complicating childbirth; E66.9 Obesity, unspecified; Z30.2 Encounter for sterilization; O99.62 Diseases of the digestive system complicating childbirth; K66.1 Hemoperitoneum; O99.334 Smoking (tobacco) complicating childbirth; F17.210 Nicotine dependence, cigarettes, uncomplicated
CPT/HCPCS: 36415; 36430; 85014; 85018; 85025; 85027; 85380; 85384; 85610; 85730; 86644; 86923; 88302; A9270; J0131; J0330; J0690; J1100; J1885; J1940; J2210; J2274; J2370; J2405; J2590; J2704; J3010; J3480; J7050; J7120; P9016